=== PATIENT | male | born 2005 | race African-American/Black ===

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

== ENCOUNTER 2024-02-10 08:32 | Emergency (ER) | payer SELFPAY ==
[2024-02-10 08:32] VITALS: BP 118/84; PULSE 74; RESP 16; TEMP 36.3; O2SAT 100
[2024-02-10 08:35] VITALS: BMI 21.8
--- NOTE | 2024-02-10 08:55 | EDS_ITS ---
HPI History of Present Illness Chief Complaint: Ear Problem [facility] Home Medications ?Medication ?Instructions ?Recorded ?Last Taken ?Type epinephrine 0.3 mg/0.3 mL 0.3 mg IM X1 12/20/19 Unknown History injection, auto-injector multivitamin with minerals 1 ea PO DAILY 12/20/19 Unknown History trazodone 150 mg tablet 150 mg PO QHS 12/20/19 Unknown History Allergy/AdvReac Type Severity Reaction Status Date / Time walnut Allergy Anaphylaxis Verified 12/20/19 15:13 Social History Smoking Status: Never smoker EXAM Physical Exam Const Vital Signs: 02/10/24 08:32 Temperature 97.4 F L Temperature Source Temporal Pulse Rate 74 Respiratory Rate 16 Blood Pressure 118/84 H Blood Pressure Mean 95 Pulse Ox 100 Oxygen Delivery Method Room Air [facility] MDM MDM Narrative Medical decision making narrative: HISTORY OF PRESENT ILLNESS: 18-year-old male presents with left ear pain for 2 days. REVIEW OF SYSTEMS: Pertinent positives: Left ear pain Pertinent negatives: Vomiting, fever PHYSICAL EXAM: Nursing triage notes reviewed, Vital signs reviewed Constitutional: please see mdm HENT: MMM, right TM pearly huertas with good cone of light, no hyperemia. Left external ear canal grossly edematous, there is some white drainage, difficulty assessing tympanic membrane secondary to amount of swelling. There is no mastoid tenderness. Eyes: Pupils equal round and reactive to light, Extraocular muscles intact Neck: No stridor, no JVD, full neck ROM Lungs: Clear to auscultation, No wheezing or rales. No increased work of breathing, no conversational dyspnea, no accessory muscle use, no nasal flaring. No respiratory distress noted Heart: Regular rate and rhythm, No murmurs, No rubs and No gallops, 2+ distal pulses (radial, femoral, posterior tibial) in all extremities Skin: No rash or lesions noted, no overlying cellulitis noted to mastoid bone on the left MEDICAL DECISION MAKING: Chief Complaint: [Ear pain External records reviewed reviewed prior records in [facility] Factors affecting care: Asthma Social determinants of health: none History obtained from others: Patient's girlfriend Consults: none [facility] Narrative: Patient was hemodynamically stable, afebrile and nontoxic-appearing. Exam with swollen external ear canal and drainage consistent with likely otitis externa. There is no report of any exposure, manipulation, water exposure etc. Patient does not have diabetes. I considered the following differential diagnosis: Otitis externa, otitis media, mastoiditis He will require topical eardrops. Given I cannot assess the tympanic membrane fully and there may be a secondary middle ear infection as well will cover with oral antibiotics. An ear wick was placed to improve medication absorption and administration. The patient and/or family, caregivers express understanding. The patient and/or family, caregivers agrees with the plan. Shared decision making: I will have a discussion with the patient and or visitors regarding risk/benefits of further testing or admission. They will be made aware of of the risk/benefits inherent in this decision they will be given the opportunity to voice understanding. Total critical care time today provided was at least 0 minutes. This excludes separately billable procedures. Critical care time (if documented) is secondary to the patient having high probability of clinically significant/life threatening deterioration in the patient's condition which required my urgent intervention. Impression: 1. Ear pain 2. Otitis externa Dispo: Discharge home This note was generated with [email or web address] dictation software. It may contain incorrect words, spelling, and punctuation that were not noted in review of the chart prior to signing. Discharge Plan Triage Chief Complaint: Ear Problem ED Provider: See Kaur Dx/Rx/DC Orders Prescriptions: No Action trazodone 150 MG tablet 150 mg PO QHS epinephrine 0.3 MG syringe 0.3 mg IM X1 Rx Instructions: allergic reaction multivitamin with minerals 1 EACH tablet 1 ea PO DAILY Primary Care Provider: Mk Mariano Referrals: Mk Mariano MD [Primary Care Provider] - Print Language: Romansh
[2024-02-10] MEDS: Acetaminophen 325 MG Tablet 650 MG PO (09:36)
[2024-02-10] MEDS: Ibuprofen 200 MG Tablet 400 MG PO (09:36)
[2024-02-10 09:41] VITALS: BP 118/72; PULSE 68; RESP 16; TEMP 36.7; O2SAT 99
== END 2024-02-10 09:42 | disposition home or self-care (01) ==
LOC: ED 09:32
PROVIDERS: Emergency Provider Emergency Medicine; Visit Provider Emergency Medicine
DX: H60.90 Unspecified otitis externa, unspecified ear (principal); H92.02 Otalgia, left ear
CPT/HCPCS: 99283

== ENCOUNTER 2024-02-12 15:24 | Emergency (ER) | payer SELFPAY ==
[2024-02-12 15:24] VITALS: BP 136/78; PULSE 63; RESP 18; TEMP 36.8; O2SAT 99; BMI 21.6
--- NOTE | 2024-02-12 15:54 | EX.ED.DYSGE1 ---
HPI History of Present Illness Chief Complaint: Ear Problem Informant: patient Narrative Narrative: Patient has had left ear pain for several days he was seen here 2 days ago, he is currently on the third day of Augmentin orally and ofloxacin drops, and he states nothing is helping. He denies any new symptoms. He thinks he was having discharge prior to being treated, he is not currently having any discharge. He has an ear wick in and it has maintained its position. PFSH PFS Medical History no medical history no medical history Home Medications ?Medication ?Instructions ?Recorded ?Last Taken ?Type epinephrine 0.3 mg/0.3 mL 0.3 mg IM X1 12/20/19 Unknown History injection, auto-injector amoxicillin 875 mg-potassium 1 tab PO BID #14 tabs 02/10/24 Unknown Rx clavulanate 125 mg tablet ofloxacin 0.3 % ear drops 10 drp LEFT EAR DAILY 7 days #10 mL 02/10/24 Unknown Rx ciprofloxacin 0.3 %-dexamethasone 4 drp EACH EAR BID 7 days #7.5 mL 02/12/24 Unknown Rx 0.1 % ear drops,suspension Allergy/AdvReac Type Severity Reaction Status Date / Time walnut Allergy Anaphylaxis Verified 02/12/24 15:25 Social History Smoking Status: Current every day smoker tobacco type: e-cigarettes ROS ROS ED Constitutional Constitutional ED: Denies chills or fever(s) ENT ENT ED: Reports abnormal hearing and ear pain left; Denies dental pain, disequillibrium, dizziness, headache(s), nasal congestion, neck pain or rhinorrhea Gastrointestinal Gastrointestinal: Denies nausea or vomiting Musculoskeletal Musculoskeletal: Denies back pain or neck pain Integumentary Denies rash EXAM Physical Exam Const Vital Signs: 02/12/24 15:24 Temperature 98.3 F Temperature Source Temporal Pulse Rate 63 Respiratory Rate 18 Blood Pressure 136/78 H Blood Pressure Mean 97 Pulse Ox 99 Oxygen Delivery Method Room Air Positive well nourished and well developed General Appearance ED: well developed and NAD HEENT Reports moist mucous membranes HEENT Narrative: Right TM and EAC normal, clear. Left ear: Pain with manipulation of both tragus and pinna. Mastoid benign and nontender. There is an ear wick in the EAC. I removed it with forceps, it is intact. It is difficult to visualize the TM due to discharge present and difficulty straightening the EAC due to pain. The canal is not swollen shut after removal of the wick. Eyes PERRL and EOMs intact bilaterally Neck no lymphadenopathy and supple Neuro oriented x3, CN's II-XII intact bilaterally and no sensory deficits noted Motor Exam: strength 5/5 throughout Psych mental status grossly normal Skin no rashes or lesions noted and no wounds MDM MDM MDM Narrative Medical decision making narrative: I reviewed the ED chart from the other day. I agree with the physician's assessment based on mine that the patient does not appear to have mastoiditis, it is difficult to evaluate the TM due to discharge and difficulty manipulating the EAC in order to visualize, due to pain, and he is not a diabetic or having any other health problems that would put him at risk for complicated otitis media/mastoiditis. I do not think based on my exam that he needs advanced imaging/CT right now. At this point it might just be that the wick needed to be removed, the swelling is not as bad as it was apparently before and I do not think he needs the wick anymore. So I am going to recommend that he continue the antibiotic drops for at least another day or so and if he does not have improvement I am giving him a prescription for Ciprodex. He understands that my options for prescribing him antibiotics are relatively limited since Cortisporin does not produce any more and I am not able to rule out the possibility of a tympanic membrane rupture. He is on Augmentin which I would continue as well to cover him for possibility of otitis media. Discharge Plan Triage Chief Complaint: Ear Problem ED Provider: Tyson Patterson Dx/Rx/DC Orders Clinical Impression: Otitis externa of left ear Instructions: ED External Ear Infection (Adult) Prescriptions: New ciprofloxacin-dexamethasone 0.3-0.1 % drops,suspension 4 drp EACH EAR BID 7 Days Qty: 7.5 0RF No Action epinephrine 0.3 MG syringe 0.3 mg IM X1 Rx Instructions: allergic reaction ofloxacin 0.3 % drops 10 drp LEFT EAR DAILY 7 Days Qty: 10 0RF amoxicillin-pot clavulanate 875-125 mg tablet 1 tab PO BID Qty: 14 0RF Primary Care Provider: Care Physician,No Primary Referrals: Rocky Vasquez MD [Med Staff - Active Staff] - 3-5 Days if not improving Care Physician,No Primary [Primary Care Provider] - Print Language: Jamaican Disposition Disposition: Home, Self Care
== END 2024-02-12 16:20 | disposition home or self-care (01) ==
PROVIDERS: Emergency Provider Emergency Medicine; Visit Provider Emergency Medicine
DX: H60.92 Unspecified otitis externa, left ear (principal); F17.210 Nicotine dependence, cigarettes, uncomplicated
CPT/HCPCS: 99282

== ENCOUNTER 2024-04-24 20:22 | Emergency (ER) | payer MEDICAID, SELFPAY ==
[2024-04-24 20:22] VITALS: BP 138/94; PULSE 104; RESP 18; TEMP 36.1; O2SAT 99; BMI 19.9
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
--- NOTE | 2024-04-24 21:22 | RAD_ITS ---
STUDY: X-RAY - LUMBAR SPINE REASON FOR EXAM: Male, 18 years old. low back injury TECHNIQUE: 2 view(s) of the lumbar spine were obtained. COMPARISON: None FINDINGS: Normal lumbar lordosis. There is no substantial scoliosis. 8 mm of anterolisthesis of L5 on S1 likely from spondylolysis with spondylolisthesis. Normal vertebral bodies and endplates. Normal disc space heights. The soft tissue structures are unremarkable. RAD/Lumbar Spine 2 or 3 Views IMPRESSION: Suspect L5 spondylolysis with spondylolisthesis. However, in the setting of acute trauma, CT should be performed to exclude fracture/subluxation. Electronically Signed: Jalil Cespedes MD at 22:44 EDT ,
--- NOTE | 2024-04-24 21:22 | RAD_ITS ---
STUDY: X-RAY - RIGHT KNEE REASON FOR EXAM: Male, 18 years old. injury TECHNIQUE: 4 view(s) of the knee. COMPARISON: None. FINDINGS: Normal visualized distal femur. Normal visualized proximal tibia and fibula. Normal proximal tibiofibular articulation. Normal medial femorotibial compartment. Normal lateral femorotibial compartment. Normal patellofemoral articulation. The soft tissue structures are unremarkable. RAD/Knee 3 Views IMPRESSION: Normal x-ray examination of the knee. Electronically Signed: Jalil Cespedes MD at 22:43 EDT ,
--- NOTE | 2024-04-24 21:22 | RAD_ITS ---
STUDY: X-RAY - RIGHT FOOT CLINICAL: Male, 18 years old. injury -- heel injury TECHNIQUE: 3 view(s) of the foot. COMPARISON: None. FINDINGS: Normal talus, calcaneus, and tarsal bones. Normal visualized subtalar, talonavicular, calcaneocuboid, tarsal and tarsometatarsal articulations. Normal metatarsi. Normal metatarsophalangeal joint of the great toe. There is a bipartite tibial sesamoid. Normal interphalangeal joint of the great toe. Normal phalanges of the great toe. Normal second through fifth metatarsophalangeal joints. Normal interphalangeal joints and phalanges of the lesser toes. The soft tissue structures are unremarkable. RAD/Foot min 3 Views IMPRESSION: Normal x-ray examination of the foot. Electronically Signed: Jalil Cespedes MD at 22:53 EDT ,
[2024-04-24 21:27] LABS: Absolute Lymphocyte Count 2.06 X10^3/uL (0.83-4.51); Basophil# 0.04 X10^3/uL; Basophil% 0.6 % (0-1); Eosinophil# 0.05 X10^3/uL; Eosinophils% 0.8 % (0-5); Hemoglobin 16.4 g/dL (13.0-16.5); Lymphocyte # 2.06 X10^3/ul (0.83-4.51); Lymphocyte % 31.9 % (19-41); Mean Corp Hgb Conc 34.9 g/dL (32-36); Mean Corpuscular Hgb 28.3 pg (27.0-32.0); Mean Corpuscular Volume 81.2 fL (80-94); Monocyte# 0.27 X10^3/uL; Monocyte% 4.2 % (0-10); NRBC Flagged by Analyzer 0 % (0-5); Neutrophil # 4.02 X10^3/uL (2.7-7.7); Neutrophil % 62.3 % (47-70); Platelet Count 370 K/mm3 (150-450); RBC Distribution Width CV 11.9 % (11.6-14.6); RBC Distribution Width SD 34.7 fl (35.1-43.9); Red Blood Count 5.79 M/mm3 (4.6-6.2); White Blood Count 6.5 K/mm3 (4.4-11.0)
--- NOTE | 2024-04-24 21:27 | EX.ED.VIS.PS ---
HPI HPI - Psych History of Present Illness Chief Complaint: Depression Informant: patient and police/iron erector Narrative Narrative: Brought in after calling police for help. He reports recent loss of a friend he would not explain how or when. He has been feeling depressed. Mother currently present stating she was in [employer] playing bingo and heard the call. She did not note of this information. Patient reportedly jumped off a second story balcony onto his feet. No injuries, he decided to climb back up and jump again this time hurting his right foot and knee. No head injuries. On exam did report mild low back pain. He could not walk therefore he called EMS for help. No diagnosis psychiatric history. Denies any alcohol or any recreational drug use. Denies any history of hurting himself in the past. [facility] Medical History Depressed Home Medications ?Medication ?Instructions ?Recorded ?Last Taken ?Type epinephrine 0.3 mg/0.3 mL 0.3 mg IM X1 12/20/19 Unknown History injection, auto-injector amoxicillin 875 mg-potassium 1 tab PO BID #14 tabs 02/10/24 Unknown Rx clavulanate 125 mg tablet ofloxacin 0.3 % ear drops 10 drp LEFT EAR DAILY 7 days #10 mL 02/10/24 Unknown Rx ciprofloxacin 0.3 %-dexamethasone 4 drp EACH EAR BID 7 days #7.5 mL 02/12/24 Unknown Rx 0.1 % ear drops,suspension Allergy/AdvReac Type Severity Reaction Status Date / Time walnut Allergy Anaphylaxis Verified 04/24/24 20:24 Social History Smoking Status: Current every day smoker tobacco type: e-cigarettes ROS ROS ED Constitutional Constitutional ED: Denies chills, fever(s) or sweats Eyes Eyes: Denies change in vision ENT ENT ED: Denies dysphagia or sore throat Cardiovascular Cardiovascular: Denies chest pain, leg edema, palpitations or racing heartbeat Respiratory/Chest Respiratory/Chest: Denies cough, dyspnea or dyspnea on exertion Gastrointestinal Gastrointestinal: Denies abdominal pain, diarrhea, nausea or vomiting Genitourinary Genitourinary ED: Denies dysuria, hematuria or urinary frequency Musculoskeletal Musculoskeletal: Denies back pain, extremity pain or neck pain Integumentary Denies rash or wounds Neurologic Neurologic: Denies headache(s), paresthesias or weakness Psychiatric Psychiatric: Reports depression, suicidal ideation and other Details: Suicide attempt EXAM Physical Exam Const Vital Signs: 04/24/24 20:22 04/24/24 22:16 Temperature 97 F L Temperature Source Temporal Pulse Rate 104 H 71 Respiratory Rate 18 13 Blood Pressure 138/94 H 133/97 H Blood Pressure Mean 108 109 Pulse Ox 99 97 Oxygen Delivery Method Room Air Positive well nourished and well developed Constitutional Narrative: Tearful, answering some questions. General Appearance ED: well developed and NAD HEENT Reports moist mucous membranes normocephalic and atraumatic Eyes EOMs intact bilaterally and conjunctivae normal General Eye ED: Yes normal appearance of both eyes Neck no lymphadenopathy and supple General: Negative for tenderness Chest Wall Chest: Negative for tenderness Resp normal respiratory effort and normal air movement Effort and Inspection: symmetric chest movement; Negative for respiratory distress Cardio regular rate, regular rhythm and no murmurs Peripheral Pulses: pulses 2+ throughout GI normal to inspection, nondistended, normoactive bowel sounds and non-tender Palpation: Negative for guarding or rebound tenderness present Back/Spine no CVA tenderness Back/Spine Narrative: Mild tenderness lower midline lumbar no step-offs. Extremity Extremity Narrative: Upper extremities: Full range of motion without any tenderness. Right lower extremity: Negative logroll. Tender palpation patellars no deformities negative varus and valgus. No ankle tenderness. Right low pressure boiler tender palpation of the heel. No midfoot tenderness. Skin intact. Soft compartments. Left lower extremity: Negative logroll. Soft compartments. No knee tenderness. No ankle or foot tenderness. No heel tenderness. Neuro vas intact distally. General Extremety ED: Yes tenderness; Negative for edema General Extremity: Negative for edema Neuro oriented x3, CN's II-XII intact bilaterally and no sensory deficits noted Sensorium / Orientation: awake and alert Psych Psych Narrative: Tearful, flat affect. Admits to suicidal thoughts at that time. Skin no rashes or lesions noted and no wounds MDM MDM MDM Narrative Medical decision making narrative: Interventions / MDM: Differential diagnosis: Suicidal intent, depression, contusions Diagnosis considered but do not suspect: Fracture however x-ray negative. My EKG interpretation: N/A Imaging independently reviewed and interpreted by myself: Right foot x-ray 3 views: No fracture noted. Right knee x-ray 3 views: No fracture or dislocation. 2 view lumbar x-ray: Slight spondylolisthesis L5-S1. However per radiology in the setting of trauma recommended lumbar CT for further rule out. Lumbar CT's scan: No fracture, L5-S1 spondylolisthesis. External documents reviewed: N/A Test considered but not ordered:N/A ED course: Suicidal attempt with depression symptoms jumping off a second story balcony twice. Second time hurting his he will right knee. There is mild lumbar tenderness. Medical clearance labs ordered. X-ray lumbar, right knee and right foot ordered for further evaluation. 2244: X-rays negative for fracture. Lumbar x-ray per radiology L5-S1 slight spondylolisthesis recommended lumbar CT ED to acute trauma rule out fracture. This was ordered and discussed with the patient. Of note right heel examination at this time soft nontender. Do not think CT is required of the heel. Sore for Tylenol and potassium his potassium 3.4. Toxicology positive for THC he reports recent use of this however none today. Alcohol negative. 2354: Lumbar CT with spondylolisthesis. No fractures. Patient is medically cleared. Crisis did see the patient in the interim, agree that patient will require transfer to psychiatric facility. [place] slip has been filled out. 0100: Awaiting likely placement. Patient signed out to night physician. Re-evaluation: stable Disposition discussed with patient/family/significant other: Case discussed with consulting clinician: Crisis This note was generated with [employer] dictation software. It may contain incorrect words, spelling, and punctuation that were not noted in checking the note before signing. Lab Data Attestation: I reviewed the patient's lab results. Labs: Laboratory Results - last 24 hr 04/24/24 04/24/24 20:37 20:45 WBC 6.5 RBC 5.79 Hgb 16.4 Hct 47.0 MCV 81.2 MCH 28.3 MCHC 34.9 RDW Std Deviation 34.7 L RDW Coeff of Zhanna 11.9 Plt Count 370 MPV 10.0 Immature Gran % (Auto) 0.200 Neut % (Auto) 62.3 Lymph % (Auto) 31.9 Perry % (Auto) 4.2 Eos % (Auto) 0.8 Baso % (Auto) 0.6 Absolute Neuts (auto) 4.0 Absolute Lymphs (auto) 2.06 Nucleated RBC % 0 Sodium 136 Potassium 3.4 L Chloride 102 Carbon Dioxide 26.0 Anion Gap 8 BUN 12 Creatinine 1.17 Estim Creat Clear Calc 87.29 Est GFR (MDRD) Af Amer 102 Est GFR (MDRD) Non-Af 84 BUN/Creatinine Ratio 10.3 Glucose 90 Calcium 10.5 H Urine Opiates Screen NEGATIVE Urine Methadone Screen NEGATIVE Ur Barbiturates Screen NEGATIVE Ur Phencyclidine Scrn NEGATIVE Ur Amphetamines Screen NEGATIVE MDMA (Ecstasy) Screen NEGATIVE U Benzodiazepines Scrn NEGATIVE Urine Cocaine Screen NEGATIVE U Cannabinoids Screen POSITIVE H Ur Drug Screen Comment Ethyl Alcohol 3.0 Radiography Diagnostic Testing: Clinical Impression(s) from Imaging Studies Foot X-Ray 04/24/24 21:22 IMPRESSION: Normal x-ray examination of the foot. Electronically Signed: Jalil Cespedes MD at 22:53 EDT Reading Location ID and State: [id number] / [employer] Tel , Service support , Knee X-Ray 04/24/24 21:22 IMPRESSION: Normal x-ray examination of the knee. Electronically Signed: Jalil Cespedes MD at 22:43 EDT Reading Location ID and State: [id number] / [employer] Tel , Service support , Lumbar Spine X-Ray 04/24/24 21:22 IMPRESSION: Suspect L5 spondylolysis with spondylolisthesis. However, in the setting of acute trauma, CT should be performed to exclude fracture/subluxation. Electronically Signed: Jalil Cespedes MD at 22:44 EDT Reading Location ID and State: [id number] / [employer] Tel , Service support , Lumbar Spine CT 04/24/24 22:48 IMPRESSION: No acute fracture or subluxation. L5 spondylolysis with grade 1 spondylolisthesis of L5 on S1. Electronically Signed: Jalli Cespedes MD at 23:44 EDT , Discharge Plan Triage Chief Complaint: Depression ED Provider: Ernesto Grady Dx/Rx/DC Orders Clinical Impression: Suicide attempt, Depression, Contusion of right heel, Contusion of knee, right, Lumbar contusion, Hypokalemia Prescriptions: No Action epinephrine 0.3 MG syringe 0.3 mg IM X1 Rx Instructions: allergic reaction ciprofloxacin-dexamethasone 0.3-0.1 % drops,suspension 4 drp EACH EAR BID 7 Days Qty: 7.5 0RF ofloxacin 0.3 % drops 10 drp LEFT EAR DAILY 7 Days Qty: 10 0RF amoxicillin-pot clavulanate 875-125 mg tablet 1 tab PO BID Qty: 14 0RF Primary Care Provider: Care Physician,No Primary Referrals: Care Physician,No Primary [Primary Care Provider] - Print Language: [place] Rican
[2024-04-24 21:42] LABS: Anion Gap 8 (5-15); BUN 12 mg/dL (7-18); BUN/Creat Ratio 10.3 RATIO (10-20); Calcium,Total 10.5 mg/dL (8.5-10.1); Chloride 102 mmol/L (98-107); Creatinine, Serum 1.17 mg/dL (0.70-1.30); EST Glomerular Filtration Rate 84 mL/min (>60); Est Glom Filt Rate - Afr Amer 102 mL/min (>60); Estimated Creatinine Clearance 87.29 ml/min; Glucose 90 mg/dL (74-106); Potassium 3.4 mmol/L (3.5-5.1); Sodium Level 136 mmol/L (136-145)
[2024-04-24 21:44] LABS: Amphetamine Urine VISTA NEGATIVE (<1000 ng/mL); Barbiturate Urine VISTA NEGATIVE (< 200 ng/mL); Benzodiazepine Urine VISTA NEGATIVE (< 200 ng/mL); Cocaine Urine VISTA NEGATIVE (< 300 ng/mL); Ecstacy Urine VISTA NEGATIVE (< 500 ng/mL); Methadone Urine VISTA NEGATIVE (< 300 ng/mL); PCP Urine VISTA NEGATIVE (< 25 ng/mL); THC Urine VISTA POSITIVE (< 50 ng/mL); Vista UDS pH Range 6
[2024-04-24 22:16] VITALS: BP 133/97; PULSE 71; RESP 13; O2SAT 97
--- NOTE | 2024-04-24 22:29 | CM.ED ---
Social Work: ED nursing staff will need to fax over entire referral packet to The Crisis Team to seek placement once patient has been medically cleared. Kaela Mccray, MOBILE LOUNGE DRIVER OR OPERATOR, TECHNICIAN SUPPORT ENGINEER
--- NOTE | 2024-04-24 22:48 | CT_ITS ---
STUDY: CT LUMBAR SPINE WITHOUT CONTRAST REASON FOR EXAM: Male, 18 years old. abnormal xray RADIATION DOSAGE (If Supplied By Facility): CTDIvol = ( 13.82 ) mGy, DLP = ( 422.19 ) mGycm TECHNIQUE: The patient was scanned in a multi detector CT scanner. High resolution transaxial imaging was performed. Images were obtained from T12 to S1. Sagittal and coronal images were reconstructed. Individualized dose optimization techniques were used for this CT. COMPARISON: X-ray earlier today FINDINGS: Normal lumbar lordosis. There is no substantial scoliosis. Normal vertebrae of the lumbar spine. L1-2: Normal endplates. Normal disc height and morphology. Normal bilateral facet joints. Normal central canal and bilateral lateral recesses. Normal bilateral intervertebral neural foramina. L2-3: Normal endplates. Normal disc height and morphology. Normal bilateral facet joints. Normal central canal and bilateral lateral recesses. Normal bilateral intervertebral neural foramina. L3-4: Normal endplates. Normal disc height and morphology. Normal bilateral facet joints. Normal central canal and bilateral lateral recesses. Normal bilateral intervertebral neural foramina. L4-5: Normal endplates. Normal disc height and morphology. Normal bilateral facet joints. Normal central canal and bilateral lateral recesses. Normal bilateral intervertebral neural foramina. L5-S1: Bilateral pars defects the L5 vertebra consistent with L5 spondylolysis. 5 mm of anterolisthesis of L5 on S1 consistent with grade 1 spondylolisthesis. Normal visualized paraspinous soft tissue structures. CT/Spine Lumbar without Contrast IMPRESSION: No acute fracture or subluxation. L5 spondylolysis with grade 1 spondylolisthesis of L5 on S1. Electronically Signed: Jalil Cespedes MD at 23:44 EDT ,
[2024-04-24] MEDS: Potassium Chloride Oral Tablet 20 MEQ PO (23:26)
[2024-04-24] MEDS: Acetaminophen 325 MG Tablet 650 MG PO (23:26)
--- NOTE | 2024-04-25 00:25 | ED.RN ---
I CALLED CRISIS AT 0025 TO LET THEM KNOW PT IS READY TO BE EVALUATED
--- NOTE | 2024-04-25 06:37 | NURSING ---
PHYSICIANS CALLED AT 0636 ETA 3-4 HOURS
[2024-04-25 06:40] VITALS: BP 111/76; PULSE 57; RESP 14; TEMP 36.6; O2SAT 97
[2024-04-25 07:30] VITALS: BP 111/76; PULSE 57; RESP 14; O2SAT 97
--- NOTE | 2024-04-25 09:46 | ED.RN ---
gave pt his phone to call gf prior to departing
== END 2024-04-25 09:49 ==
PROVIDERS: Emergency Provider Emergency Medicine; Visit Provider Emergency Medicine
DX: F32.A Depression, unspecified (principal); T14.91XA Suicide attempt, initial encounter; E87.6 Hypokalemia; S80.01XA Contusion of right knee, initial encounter; M43.19 Spondylolisthesis, multiple sites in spine; S30.0XXA Contusion of lower back and pelvis, initial encounter; F17.290 Nicotine dependence, other tobacco product, uncomplicated
CPT/HCPCS: 36415; 72100; 72131; 73562; 73630; 80048; 80307; 82077; 85025; 99283

== ENCOUNTER 2024-09-22 20:45 | Emergency (ER) | payer MEDICAID, SELFPAY ==
[2024-09-22 20:47] VITALS: BP 140/83; PULSE 69; RESP 18; TEMP 36.6; O2SAT 100; BMI 22.4
--- NOTE | 2024-09-22 21:13 | EKG12_ITS ---
Test Reason : Blood Pressure : */* mmHG Vent. Rate : 64 BPM Atrial Rate : 64 BPM P-R Int : 94 ms QRS Dur : 88 ms QT Int : 358 ms P-R-T Axes : 84 87 -12 degrees QTcB Int : 369 ms Sinus rhythm with short OK Nonspecific T wave abnormality Abnormal ECG Confirmed by PENELOPE PRADO, NABIL ([id number]), purchase request editor JAVIER SEGURA ([id number]) on 09/27/2024 11:02:08 AM Referred By: Confirmed By: NABIL NEGRETE MD
[2024-09-22] MEDS: Ipratropium/Albuterol Sulfate 3 ML AMPUL.NEB INHALATION (21:23)
[2024-09-22 21:24] VITALS: PULSE 76; RESP 18
[2024-09-22] MEDS: MethylPREDNISolone 125 MG/2 ML Vial IV (21:27)
[2024-09-22 21:28] LABS: Absolute Lymphocyte Count 3.06 X10^3/uL (0.83-4.51); Absolute Neutrophil Count 2.7 X10^3/uL (2.0-7.7); Basophil# 0.05 X10^3/uL; Basophil% 0.7 % (0-1); Eosinophil# 0.73 X10^3/uL; Eosinophils% 10.7 % (0-5); Hematocrit 44.3 % (40-54); Hemoglobin 15.6 g/dL (13.0-16.5); Lymphocyte # 3.06 X10^3/ul (0.83-4.51); Lymphocyte % 44.9 % (19-41); Mean Corp Hgb Conc 35.2 g/dL (32-36); Mean Corpuscular Hgb 28.9 pg (27.0-32.0); Mean Corpuscular Volume 82.2 fL (80-94); Mean Platelet Vol. 9.2 fl (6.2-12.0); Monocyte# 0.29 X10^3/uL; Monocyte% 4.3 % (0-10); NRBC Flagged by Analyzer 0 % (0-5); Neutrophil # 2.67 X10^3/uL (2.7-7.7); Neutrophil % 39.1 % (47-70); Platelet Count 344 K/mm3 (150-450); RBC Distribution Width CV 12.4 % (11.6-14.6); RBC Distribution Width SD 36.9 fl (35.1-43.9); Red Blood Count 5.39 M/mm3 (4.6-6.2); White Blood Count 6.8 K/mm3 (4.4-11.0)
--- NOTE | 2024-09-22 21:36 | ED.VIS.DYS ---
HPI History of Present Illness Chief Complaint: Cold Sx Informant: patient and spouse/S.O. Narrative Narrative: History of asthma tobacco presents increasing chest tightness difficulty taking deep breath. Denies any significant cough. Denies recent travel or surgeries. No history of PE. He went to express care yesterday states that chest x-ray sent home with inhaler. This is not helping. No family history of AL. He states asthma no other chronic medical conditions. Reports slight headache slight sore throat. Prior similar symptoms: No PFSH PFSH Medical History Asthma Depressed Home Medications ?Medication ?Instructions ?Recorded ?Last Taken ?Type epinephrine 0.3 mg/0.3 mL 0.3 mg IM X1 12/20/19 Unknown History injection, auto-injector prednisone 20 mg tablet 60 mg (3 x 20 mg) PO DAILY #12 09/22/24 Unknown Rx TABLETS Allergy/AdvReac Type Severity Reaction Status Date / Time walnut Allergy Anaphylaxis Verified 09/22/24 20:47 Social History Smoking Status: Current every day smoker tobacco type: e-cigarettes ROS ROS ED Constitutional Constitutional ED: Denies chills, fever(s) or sweats ENT ENT ED: Reports sore throat Cardiovascular Cardiovascular: Reports chest pain; Denies leg edema, palpitations or racing heartbeat Respiratory/Chest Respiratory/Chest: Reports cough and dyspnea; Denies dyspnea on exertion Gastrointestinal Gastrointestinal: Denies abdominal pain, diarrhea, nausea or vomiting Genitourinary Genitourinary ED: Denies dysuria, hematuria or urinary frequency Musculoskeletal Musculoskeletal: Denies back pain, extremity pain or neck pain Integumentary Denies rash or wounds Neurologic Neurologic: Reports headache(s); Denies paresthesias or weakness EXAM Physical Exam Const Vital Signs: 09/22/24 20:47 09/22/24 21:06 09/22/24 21:24 Temperature 98 F Temperature Source Oral Pulse Rate 69 76 Respiratory Rate 18 18 Respiratory Effort Normal Non-Labored Respiratory Pattern Normal Blood Pressure 140/83 H Blood Pressure Mean 102 Pulse Ox 100 Oxygen Delivery Method Room Air 09/22/24 22:45 09/22/24 23:00 Temperature Temperature Source Pulse Rate 55 L 64 Respiratory Rate 18 20 H Respiratory Effort Respiratory Pattern Blood Pressure 120/94 H 131/85 H Blood Pressure Mean 102 99 Pulse Ox 98 98 Oxygen Delivery Method Room Air Positive well nourished and well developed General Appearance ED: well developed and NAD HEENT Reports moist mucous membranes normocephalic and atraumatic Eyes General Eye ED: Yes normal appearance of both eyes Neck full ROM Chest Wall Chest: Negative for tenderness Resp Resp Narrative: Diminished however symmetric breath sounds. Effort and Inspection: symmetric chest movement; Negative for respiratory distress Cardio regular rate, regular rhythm and no murmurs Peripheral Pulses: pulses 2+ throughout GI normal to inspection, nondistended, normoactive bowel sounds and non-tender Palpation: Negative for guarding or rebound tenderness present Extremity normal to inspection General Extremety ED: Negative for edema or tenderness General Extremity: Negative for edema Neuro oriented x3 and no sensory deficits noted Sensorium / Orientation: awake and alert Skin no rashes or lesions noted and no wounds MDM MDM MDM Narrative Medical decision making narrative: Interventions / MDM: Differential diagnosis: Viral syndrome, asthma exacerbation, tobacco dependence Diagnosis considered but do not suspect: Pulmonary embolism however D-dimer negative. My EKG interpretation: Sinus rate of 64, no ST or T wave changes. A Imaging independently reviewed and interpreted by myself: N/A External documents reviewed: N/A Test considered but not ordered:N/A ED course: Vital stable symmetric breath sounds. EKG obtained sinus rhythm. Reported chest pain with dyspnea. He reported negative chest x-ray yesterday. Will check labs and D-dimer. Viral swab sent. Aerosol treatment and Solu-Medrol started. 2248: Improving breath sounds. Labs including D-dimer negative. Awaiting viral swab results. 0: Swabs are negative. Is reassured. Continue steroids and inhaler. Tobacco cessation discussed. Outpatient follow-up. All questions were answered. Re-evaluation: stable Disposition discussed with patient/family/significant other: Patient Case discussed with consulting clinician: N/A This note was generated with [employer] dictation software. It may contain incorrect words, spelling, and punctuation that were not noted in checking the note before signing. Lab Data Labs: Laboratory Results - last 24 hr 09/22/24 21:22 WBC 6.8 RBC 5.39 Hgb 15.6 Hct 44.3 MCV 82.2 MCH 28.9 MCHC 35.2 RDW Std Deviation 36.9 RDW Coeff of Zhanna 12.4 Plt Count 344 MPV 9.2 Immature Gran % (Auto) 0.300 Neut % (Auto) 39.1 L Lymph % (Auto) 44.9 H [place] % (Auto) 4.3 Eos % (Auto) 10.7 H Baso % (Auto) 0.7 Absolute Neuts (auto) 2.7 Absolute Lymphs (auto) 3.06 Nucleated RBC % 0 D-Dimer Quant (PE/DVT) < 0.27 L Sodium 139 Potassium 3.9 Chloride 102 Carbon Dioxide 23.0 Anion Gap 14 BUN 13 Creatinine 0.91 Estim Creat Clear Calc 126.52 Est GFR (MDRD) Non-Af 124 BUN/Creatinine Ratio 14.0 Glucose 106 H Calcium 10.0 Discharge Plan Triage Chief Complaint: Cold Sx ED Provider: Ernesto Grady Dx/Rx/DC Orders Clinical Impression: Asthma exacerbation, Chest tightness, Tobacco dependence Instructions: Asthma Action Plan, Asthma COPD Trigger Control Prescriptions: New prednisone 20 mg tablet 60 mg PO DAILY Qty: 12 0RF No Action epinephrine 0.3 MG syringe 0.3 mg IM X1 Rx Instructions: allergic reaction Stand Alone Forms: ED Work / School Excuse Primary Care Provider: Care Physician,No Primary Referrals: Care Physician,No Primary [Primary Care Provider] - Altagracia Farrell DO Mi [[facility]] - 1-2 Weeks Activity Restrictions/Additional Instructions: Continue your inhaler. Take and finish steroids prescribed. Your viral swabs are negative. EKG normal. Labs including D-dimer negative. Print Language: Greek Disposition Disposition: Home, Self Care Discharge Date/Time: 09/22/24 23:31
[2024-09-22 21:55] LABS: D-Dimer Quantitative (DVT/PE) < 0.27 FEU/ug/m (0.27-0.49)
[2024-09-22 22:21] LABS: Anion Gap 14 (5-15); BUN 13 mg/dL (4-19); Chloride 102 mmol/L (98-108); Creatinine, Serum 0.91 mg/dL (0.70-1.20); EST Glomerular Filtration Rate 124 (>60); Estimated Creatinine Clearance 126.52 ml/min (50-250); Glucose 106 mg/dL (70-99); Potassium 3.9 mmol/L (3.3-5.1); Sodium Level 139 mmol/L (133-145)
[2024-09-22 22:45] VITALS: BP 120/94; PULSE 55; RESP 18; O2SAT 98
[2024-09-22 23:00] VITALS: BP 131/85; PULSE 64; RESP 20; O2SAT 98
== END 2024-09-22 23:31 | disposition home or self-care (01) ==
PROVIDERS: Emergency Provider Emergency Medicine; Visit Provider Emergency Medicine
DX: J45.901 Unspecified asthma with (acute) exacerbation (principal); R07.89 Other chest pain; F17.290 Nicotine dependence, other tobacco product, uncomplicated
CPT/HCPCS: 80048; 85025; 85379; 87631; 93005; 94640; 96374; 99284; A4216

== ENCOUNTER 2024-12-09 17:39 | Emergency (ER) | payer MEDICAID, SELFPAY ==
[2024-12-09 17:40] VITALS: BP 138/95; PULSE 55; RESP 16; TEMP 36.6; O2SAT 96; BMI 21.1
--- NOTE | 2024-12-09 17:47 | EDS_ITS ---
HPI History of Present Illness Chief Complaint: Chest Other Informant: patient Onset/Context/Timing Onset: Yesterday Context: Gradual Onset Timing: Continuous Quality: Tightness Location: Sternal Worsened by: Standing Relieved by: Nothing Narrative Narrative: Patient presents with chest pain that began yesterday. Patient states he was seen here yesterday for a seizure. Patient states he had a sternal rub and CPR performed. Patient states that his pain today is getting progressively worse. Patient describes it as tightness. Patient states it is over the sternal area. Patient states it is worse when he stands up. Patient admits to some shortness of breath. Patient also admits to some palpitations. Patient denies any fevers or chills. [facility] Medical History Asthma Depressed Home Medications ?Medication ?Instructions ?Recorded ?Last Taken ?Type epinephrine 0.3 mg/0.3 mL 0.3 mg IM X1 12/20/19 Unknow n History injection, auto-injector prednisone 20 mg tablet 60 mg (3 x 20 mg) PO DAILY # 12 09/22/24 Unknown Rx TABLETS Allergy/AdvReac Type Severity Reaction Status Date / Time walnut Allergy Anaphylaxis Verified 12/09/24 17:43 Social History Smoking Status: Current every day smoker tobacco type: e-cigarettes ROS ROS ED Constitutional Constitutional ED: Denies chills or fever(s) Eyes Eyes: Denies blurry vision or change in vision ENT ENT ED: Denies rhinorrhea or sore throat Cardiovascular Cardiovascular: Reports chest pain and palpitations Respiratory/Chest Respiratory/Chest: Reports dyspnea; Denies cough Gastrointestinal Gastrointestinal: Denies nausea or vomiting Genitourinary Genitourinary ED: Denies dysuria or hematuria Musculoskeletal Musculoskeletal: Denies back pain or neck pain Integumentary Denies abscess or rash Neurologic Neurologic: Denies headache(s) or weakness Allergic/Immunologic Allergic/Immunologic ED: Denies mouth swelling or urticaria EXAM Physical Exam Const Vital Signs: 12/09/24 17:40 12/09/24 17:50 Temperature 97.9 F Temperature Source Oral Pulse Rate 55 L Respiratory Rate 16 Respiratory Effort Normal Blood Pressure 138/95 H Blood Pressure Mean 109 Pulse Ox 96 Oxygen Delivery Method Room Air Positive well nourished and well developed General Appearance ED: well developed and NAD HEENT Reports moist mucous membranes Neck supple and no JVD Chest Wall Chest Narrative: There is tenderness over the sternum. There is no bony crepitance or step-off noted. There is no subcutaneous emphysema palpated. Resp normal respiratory effort and clear to auscultation bilaterally Cardio regular rate and regular rhythm GI non-tender and non-distended Palpation: soft Neuro oriented x3, CN's II-XII intact bilaterally and no sensory deficits noted Sensorium / Orientation: alert Motor Exam: strength 5/5 throughout Psych mental status grossly normal MDM MDM MDM Narrative Medical decision making narrative: Differential diagnosis includes pneumothorax, sternal fracture, contusion, cardiac dysrhythmia, and muscle strain. EKG will be obtained to assess for cardiac dysrhythmia and cardiac ischemia. Chest x-ray will be obtained to assess for pneumothorax and sternal fracture. History & Record Review Additional record(s) reviewed:: Prior ED visit Radiography Chest X-Ray - ED: 2 View, Read by ED Physician, Read by Radiologist and No Acute Disease Diagnostic Testing: Clinical Impression(s) from Imaging Studies Chest X-Ray 12/09/24 18:28 IMPRESSION: NO ACUTE FINDINGS. Reading Location: [place] [id number] [place] and lateral chest x-ray was obtained. There are 2 views. On my independent interpretation, lung arreola are clear. There is normal cardiac silhouette. Bony thorax is normal. There is no acute process noted. Radiologist also interpreted the x-ray and agrees. EKG Initial EKG: Attestation: I personally reviewed and interpreted this EKG as follows: Interpretation: Sinus Rhythm (68) and Non-Specific ST Changes Comments: EKG was obtained. On my independent interpretation, it showed a normal sinus rhythm with a rate of 68. [place] interval, QRS interval, and QTc intervals were all normal. [place] was normal. There are nonspecific ST-T wave changes. Prior EKG tracings: available for review Prior: Unchanged (09/22/2024) Treatment and Re-Evaluation :: Patient was advised of his findings. Patient was advised that this is most likely a contusion. Patient was instructed to use ice to the area. Patient was instructed to take Tylenol or ibuprofen as needed for pain. Patient was instructed to follow-up with his primary care physician in 5 to 7 days. Patient was instructed to return if worse in any way. Patient understood and was agreeable with the plan. All questions were answered. Discharge Plan Triage Chief Complaint: Chest Other ED Provider: Angel Nesbitt Dx/Rx/DC Orders Clinical Impression: Chest wall pain, History of seizure Instructions: ED Chest Wall Contusion Prescriptions: No Action epinephrine 0.3 MG syringe 0.3 mg IM X1 Rx Instructions: allergic reaction prednisone 20 mg tablet 60 mg PO DAILY Qty: 12 0RF Stand Alone Forms: ED Work / School Excuse Primary Care Provider: Care Physician,No Primary Referrals: Care Physician,No Primary [Primary Care Provider] - Altagracia Farrell DO Mi [[facility]] - 5-7 Days Print Language: Upper Sorbian Disposition Disposition: Home, Self Care Discharge Date/Time: 12/09/24 20:30
--- NOTE | 2024-12-09 18:11 | EKG12_ITS ---
Test Reason : DYSRHYTHMIA Blood Pressure : */* mmHG Vent. Rate : 68 BPM Atrial Rate : 68 BPM P-R Int : 136 ms QRS Dur : 90 ms QT Int : 386 ms P-R-T Axes : 37 77 33 degrees QTcB Int : 410 ms Normal sinus rhythm with sinus arrhythmia Nonspecific ST abnormality Abnormal ECG Confirmed by Attila Johnson ([id number]), editor map JAVIER SEGURA ([id number]) on 12/13/2024 10:40:20 AM Referred By: Angel Nesbitt Confirmed By: Attila Johnson
--- NOTE | 2024-12-09 18:28 | RAD_ITS ---
PROCEDURE: CHEST PA AND LATERAL 12/09/2024 REASON FOR EXAM: CHEST PAIN TECHNIQUE: Frontal and lateral views of the chest. COMPARISON: 12/07/2024. FINDINGS: The heart is normal in size. The mediastinum is normal in contour. The lungs are clear. No acute osseous abnormalities. RAD/Chest PA and Lateral IMPRESSION: NO ACUTE FINDINGS. Reading Location: [place] [id number]
== END 2024-12-09 20:30 | disposition home or self-care (01) ==
PROVIDERS: Emergency Provider Emergency Medicine; Referring Provider Emergency Medicine; Visit Provider Emergency Medicine
DX: R07.89 Other chest pain (principal); R06.02 Shortness of breath; R00.2 Palpitations; F17.290 Nicotine dependence, other tobacco product, uncomplicated; Z86.69 Personal history of other diseases of the nervous system and sense organs
CPT/HCPCS: 71046; 93005; 99282